=== PATIENT | male | born 1945 | race Caucasian/White ===

== ENCOUNTER 2016-09-11 20:34 | Inpatient (IN) | payer MEDICARE, BC ==
[~2016-09-11] VITALS: Ht 182.9 cm; Wt 146.1 kg
--- NOTE | ~2016-09-11 | HEMODYNAMI ---
PATIENT:ERNESTO CUNNINGHAM MEDICAL RECORD: [id number] : 49 LOCATION:[place] [address] ADMISSION DATE: 09/11/16 Generatedon:09/13/201613:01 Patient name: ERNESTO CUNNINGHAM Patient #: [id number] SSN: : 1945 Date of study: 09/13/2016 Page: Of Hemodynamic Procedure Report Patient Data Patient Demographics Procedure consent was obtained First Name: ERNESTO Gender: Male Last Name: OCTAVIO : 1945 Middle Initial: A Age: 71 year(s) Patient #: [id number] Race: Additional ID: [id number] Contact details [address]: [address] [place] [address] [address] State: [place] City: [place] Zip code: [address] Past Medical History Allergies Allergen Reaction Date Comments Reported Other allergy 12/12/2014 Sulfa Admission Admission Data Admission Date: 09/11/2016 Admission Time: 23:00 Room #: [facility] Procedure Procedure Types Cath Procedure Diagnostic Procedure [facility] w/Coronaries Cardioversion Miscellaneous Procedures Procedure Description Procedure Date Procedure Date: 09/13/2016 Procedure Start Time: 12:34 Procedure End Time: 12:59 Procedure Staff Name Function Hayden Santos MD Performing Physician Lanny Shelley RT Scrub Katerina Garvin RN Nurse Tl Barbosa RN Statistics Tutor Neto Bethea RT Monitor Abimael Park RT Monitor Procedure Data Cath Procedure Fluoroscopy Diagnostic fluoroscopy Total fluoroscopy Time: 8.5 time: 8.5 min min Diagnostic fluoroscopy Total fluoroscopy dose: 892 dose: 892 mGy mGy Contrast Material Contrast Material Type Amount (ml) Isovue 300 138 Entry Location Entry Primary Successful Side Size Upsize Upsize Entry Closure Pereyra ccessful Closure Location (Fr) 1 (Fr) 2 (Fr) Remarks Device Remarks Radial Right 6 Fr Mechanical artery Short Compression Estimated blood loss: 10 ml Diagnostic catheters Device Type Used For End Catheter Placement Terumo 5Fr [place] 110cm Procedure catheter Procedure Medications Medication Administration Route Dosage Heparin Flush Bag added to field 2 bags (1000units/500ml NS) Lidocaine 2% added to field 20 Oxygen NC 4 l/min Refer to Anesthesia Notes for Sedation Medications Radial Cocktail added to field 1 syringe (Verapomil 2mg/Nitro 400mcg/Heparin 1500units) Radial Cocktail I.A. 1 syringe (Verapomil 2mg/Nitro 400mcg/Heparin 1500units) Heparin Bolus I.V. 5000 units Hemodynamics Rest Heart Rate: 103 (bpm) Snapshots Pre Cath Intra NCS Post Cath Vital Signs Time Heart Resp SPO2 etCO2 VS5club Respiration NIBP (mmHg) Rhythm Pain Sedation Rate (ipm) (%) (mmHg) (mmHg) (CO2) (ipm) Status Level (bpm) 12:17:56 108 23 94 45.8 8.2 20 Measuring NSR 0 (1 1) 10(A) , No pain 12:18:10 104 27 94 40.5 9 24 151/91(121) NSR 0 (1 1) 10(A) , No pain 12:22:22 90 32 95 29.2 8.2 11 139/85(104) NSR 0 (1 1) 10(A) , No pain 12:26:34 74 24 95 45 5.2 19 118/70(88) NSR 0 (1 1) 7(A) , No pain 12:30:48 74 30 95 48.7 12.7 18 116/66(92) NSR 0 (1 1) 9(A) , No pain 12:35:41 83 14 94 20.2 3.7 18 141/96(99) NSR 0 (1 1) 9(A) , No pain 12:39:55 81 20 95 18 0 142/81(117) NSR 0 (1 1) 9(A) , No pain 12:44:13 82 19 95 43.5 9.7 23 136/81(111) NSR 0 (1 1) 9(A) , No pain 12:48:27 81 19 95 0 0 134/65(92) NSR 0 (1 1) 9(A) , No pain 12:52:45 79 21 95 46.5 11.2 21 135/73(102) NSR 0 (1 1) 10(A) , No pain 12:57:01 79 25 95 49.5 9.7 15 121/74(99) NSR 0 (1 1) 10(A) , No pain Medications Time Medication Route Dose Verified Delivered Reason Note s Effectiveness by by 12:00:28 Heparin Flush added 2 bags Hayden Blake used for Bag to Danielle Santos MD procedure (1000units/500ml field NS) 12:00:38 Lidocaine 2% added 20ml Hayden Hayden used for to vial Danielle Santos MD procedure field 12:02:27 Oxygen NC 4 l/min Hayden Borges Per physician Danielle Garvin RN 12:16:48 Refer to Hayden Blake Per physician Anesthesia Notes Danielle Medley for Sedation at Medications bedside for TIVA sedation 12:17:14 Radial Cocktail added 1 Haydne Hayden used for (Verapomil to syringe Danielle Santos MD procedure 2mg/Nitro field 400mcg/Heparin 1500units) 12:36:09 Radial Cocktail I.A. 1 Haydenmarianela Paigerey for (Verapomil syringe Danielle Santos MD vasodilation 2mg/Nitro 400mcg/Heparin 1500units) 12:45:10 Heparin Bolus I.V. 5000 Hayden Katerina for dose units Danielle Garvin RN anticoagulation verified wt dr santos Procedure Log Time Note 11:53:04 Tl Barbosa RN sent for patient. Start room use. 11:53:04 Time tracking: Regular hours 11:53:09 Plan of Care:Hemodynamics will remain stable., Cardiac rhythm will remain stable., Comfort level will be maintained., Respiratory function will remain adequate., Patient/ family verbilizes understanding of procedure., Procedure tolerated without complication., Recovers from procedure without complications.. 12:00:28 Heparin Flush Bag (1000units/500ml NS) 2 bags added to field was administered by Hayden Santos MD; used for procedure; 12:00:38 Lidocaine 2% 20ml vial added to field was administered by Hayden Santos MD; used for procedure; 12:02:22 Patient received from CVICU to CCL 1 Alert and oriented. Tansferred to table in Supine position. 12:02:23 Warm blankets applied, and annmarie hugger turned on for patient comfort. 12:02:24 Correct patient and procedure confirmed by team. 12:02:26 Signed procedure consent form obtained from patient. 12:02:27 Oxygen 4 l/min NC was administered by Katerina Garvin RN; Per physician; 12:02:37 ECG and BP/O2 sat monitors applied to patient. 12:02:47 Jasmyne present and monitoring patient for TIVA. 12:16:07 Vital chart was started 12:16:48 Refer to Anesthesia Notes for Sedation Medications was administered by Hayden Santos MD; Per physician; Dr Medley at bedside for TIVA sedation 12:17:14 Radial Cocktail (Verapomil 2mg/Nitro 400mcg/Heparin 1500units) 1 syringe added to field was administered by Hayden Santos MD; used for procedure; 12:22:07 Baseline sample Acquired. 12:22:09 Rhythm: atrial flutter 12:22:21 Full Disclosure recording started 12:22:29 H&P Date Dictated: 09/10/2016 Within 30 days and on chart.. 12:22:30 Pre-procedure instructions explained to patient. 12:22:31 Pre-op teaching completed and patient verbalized understanding. 12:22:32 Family in waiting room. 12:22:33 Patient NPO since Midnight. 12:22:35 Is the patient allergic to Iodine/contrast media? No. 12:22:38 Is patient on blood thinner?Yes 12:22:40 ACC The patient was administered the following blood thiners within the last 24 hours: ACCPlavix 12:22:43 Patient diabetic? No. 12:22:45 Previous problem with sedation/anesthesia? No ? 12:22:46 Snore? Yes 12:22:47 Sleep apnea? Yes 12:22:48 Deviated septum? No 12:22:49 Opens mouth fully? Yes 12:22:49 Sticks out tongue? Yes 12:22:52 Airway obstruction? No ? 12:22:53 Dentures? No ? 12:23:00 Pre procedure: right dorsailis pedis pulse 1+ Palpable, but thready & weak; easily obliterated 12:23:04 Modified Jerson's test Ulnar < 7 seconds 12:23:08 Patient pain scale 0/10 ?. 12:23:17 Lab results completed and on chart. 12:23:21 Right Radial & Right Groin area was prepped with chlora-prep and draped in sterile fashion 12:: Alarms reviewed by R. N. :: Sharps counted by scrub and verified by R.N. :: --------ALL STOP TIME OUT------ 12:: Final Timeout: patient, procedure, and site verified with staff and physician. All members of the team are in agreement. 12:: Right Radial & Right Groin site verified by team. 12::33 Physical assessment completed. ASA score P 2 - A patient with mild systemic disease as per Hayden Santos MD. 12::57 Sedation plan: IV Moderate Sedation Propofol 12:24:00 Procedure started. 12:24:16 Quick combo pads placed on patients chest and back. 12:: Defibrillator synced and charged to 360 Joules. 12:24:31 Shock delivered. 12:24:34 Patient cardioverted to sinus rhythm . 12:27:45 Use device set Radial Dx 12:27:47 Tegaderm 4 x 4 opened to sterile field. 12:27:48 Acist Manifold opened to sterile field. 12:27:48 Acist Hand Control opened to sterile field. 12:27:50 Acist Syringe opened to sterile field. 12:27:51 Medline Cath Pack opened to sterile field. 12:27:51 Bag Decanter opened to sterile field. 12:28:00 MBrace Wrist Support opened to sterile field. 12:28:01 Terumo 6Fr Slender Glidesheath opened to sterile field. 12:28:02 St Messi 260cm J .035 wire opened to sterile field. 12:28:32 Quick Combo opened to sterile field. 12:34:50 Local anesthetic to right radial artery with Lidocaine 2% by Hayden Santos MD.INITIAL ACCESS ONLY 12:35:01 A 6 Fr Short sheath was inserted into the Right Radial artery 12:35:47 Zero performed for pressure channel P1 12:36:09 Radial Cocktail (Verapomil 2mg/Nitro 400mcg/Heparin 1500units) 1 syringe I.A. was administered by Hayden Santos MD; for vasodilation; 12:36:27 A Terumo 5Fr [place] 110cm catheter was advanced over the wire and used for Procedure. 12:36:43 LV gram done using LANDIN 12:36:47 Injector settings: Ml/sec: 5, Volume: 15, 12:36:58 EF : 40 % 12:38:05 Catheter exchanged over wire. 12:39:06 Catheter removed. unable to cannulate vessel. 12:39:37 Medtronic Launcher 6Fr EBU 3.5 guide catheter opened to sterile field. 12:39:45 6 Fr EBU 3.5 guide catheter was inserted over the wire 12:40:02 Medtronic Launcher 6Fr AR 2.0 guide catheter opened to sterile field. 12:40:03 Medtronic Launcher 6Fr EBU 4.0 guide catheter opened to sterile field. 12:40:08 Catheter removed. unable to cannulate vessel. 12:40:14 6 Fr ebu4 guide catheter was inserted over the wire 12:41:13 LCA angiography performed. 12:41:53 Catheter exchanged over wire. 12:41:59 6 Fr AR 2 guide catheter was inserted over the wire 12:43:18 RCA angiography performed. 12:43:43 Pogoapp BasixCompak Inflation Kit opened to sterile field. 12:43:43 Ruggiero Whisper J 300cm 0.014 guide wire opened to sterile field. 12:45:10 Heparin Bolus 5000 units I.V. was administered by Katerina Garvin RN; for anticoagulation; dose verified wtih dr santos 12:47:37 Medtronic Launcher 6Fr HS II guide catheter opened to sterile field. 12:47:48 Wire removed. 12:49:06 Guide Catheter removed. unable to cannulate vessel. 12:49:09 6 Fr HSII guide catheter was inserted over the wire 12:49:18 Guide Catheter removed. unable to cannulate vessel. 12:52:26 Medtronic Launcher 6Fr AL 2.0 guide catheter opened to sterile field. 12:54:12 Catheter removed. unable to cannulate vessel. 12:54:29 Terumo TR Band Large opened to sterile field. 12:55:25 Sheath removed intact; hemostasis achieved with Mechanical Compression to the Right Radial artery. 12:55:43 Procedure ended.(Physican Out) 12:56:04 Fluoroscopy time 08.50 minutes. 12:56:10 Flurop Dose total: 892 12:56:10 Fluoroscopy dose: 892 mGy 12:56:21 Contrast amount:Isovue 300 138ml. 12:56:23 Sharps counted by scrub and verified by R.N. 12:56:41 TR band inflated with 12cc of air. 12:56:43 Insertion/operative site no bleeding no hematoma. 12:56:52 Post right radial artery:stable 12:57:50 Diagnostic Cath Status : Elective 12:58:25 Post Procedure Pulses reassessed and unchanged 12:58:47 Post-procedure physical assessment completed. ASA score P 2 - A patient with mild systemic disease as per Hayden Santos MD. 12:59:00 Post procedure rhythm: sinus rhythm 12:59:05 Estimated blood loss: 10 ml 12:59:07 Post procedure instruction explained to patient.Patient verbalizes understanding. 12:59:14 Patient needs reinforcement of post procedure teaching. 12:59:16 Procedure and supply charges have been captured, reviewed, submitted and are correct. 12:59:18 Vital chart was stopped 12:59:21 See physician's report for complete and final results. 12:59:27 Report given to PCU. 12:59:48 Patient transfered to PCU with Bed. 12:59:51 Procedure ended. 12:59:51 Full Disclosure recording stopped 12:59:55 End room use (Document Last) Device Usage Item Name Manufacture Quantity Catalog Hospital Part Current Minima l Lot# / Number Charge Number Stock Stock Serial# Code Tegaderm 4 3M 1 [id number] [id number] 153888 5 x 4 Acist Acist 1 58188 988933 872652 399449 5 Manifold Medical Systems Inc Acist Hand Acist 1 28624 402680 884296 461884 5 Control Medical Systems Inc Acist Acist 1 19417 511939 750333 732960 20 Syringe Medical Systems Inc Medline Cardinal 1 [id number] 363441 76644 769788 5 Cath Pack Health Bag Microtek 1 2001S 581819 22687 698168 5 DecSpriggle Kids Inc. MBrace Advanced 1 140-0250-00 531670 26251 572044 5 Wrist Vascular Support Dynamics Terumo 6Fr Terumo 1 [id number] 224116 965921 942510 [address] St Messi 1 033773 444149 339529 410126 30 260cm J .035 wire Quick Combo Olery Systems 1 [id number] 013293 895416 608812 5 Terumo 5Fr Terumo 1 405010 784265 088794 316737 5 [place] 110cm catheter Medtronic Medtronic 1 [id number] 996028 60261 932009 3 Launcher 6Fr EBU 3.5 guide catheter Medtronic Medtronic 1 [id number] 501025 49032 285076 1 Launcher 6Fr AR 2.0 guide catheter Medtronic Medtronic 1 [id number] 473083 31509 170654 1 Launcher 6Fr EBU 4.0 guide catheter Merit Merit 1 [id number] 361919 337896 736523 15 BasixComdck Medical Inflation Kit Ruggiero Ruggiero 1 [id number] 527846 590074 205379 5 Whisper J Vascular 300cm 0.014 guide wire Medtronic Medtronic 1 [id number] 647800 70668 997303 1 Launcher 6Fr HS II guide catheter Medtronic Medtronic 1 [id number] 093003 19532 430559 1 Launcher 6Fr AL 2.0 guide catheter Terumo TR Terumo 1 [id number] 824179 599106 917395 40 Band Large Signature Audit Dickerson Stage Time Signature Unsigned Intra-Procedure 09/13/2016 Abimael Park 1:01:23 PM RT(R) (CV) Signatures Monitor : Neto Bethea RT Signature : Date : Time : Monitor : Abimael Park RT Signature : Date : Time : [place] [id number] [place] [address]
--- NOTE | ~2016-09-11 | HEMODYNAMI ---
PATIENT:ERNESTO CUNNINGHAM MEDICAL RECORD: [id number] : 49 LOCATION:[place] [address] ADMISSION DATE: 09/11/16 Generatedon:09/14/201612:22 Patient name: ERNESTO CUNNINGHAM Patient #: [id number] SSN: : 1945 Date of study: 09/14/2016 Page: Of Hemodynamic Procedure Report Patient Data Patient Demographics Procedure consent was obtained First Name: ERNESTO Gender: Male Last Name: OCTAVIO : 1945 Middle Initial: A Age: 71 year(s) Patient #: [id number] Race: Additional ID: [id number] Contact details [address]: [address] [place] [address] [address] State: [place] City: [place] Zip code: [address] Past Medical History Allergies Allergen Reaction Date Comments Reported Other allergy 12/12/2014 Sulfa Admission Admission Data Admission Date: 09/11/2016 Admission Time: 23:00 Room #: [facility] Procedure Procedure Types Cath Procedure Miscellaneous Procedures Moderate Sedation up to 30 minutes Peripheral Cath Diagnostic Procedure Cath Peripheral Four Vessel Arteriogram Procedure Description Procedure Date Procedure Date: 09/14/2016 Procedure Start Time: 11:28 Procedure End Time: 12:22 Procedure Staff Name Function Hayden Santos MD Performing Physician Carri Haney RN Nurse Zac Shkula RT Monitor Alberto Salmeron RT Scrub Procedure Data Cath Procedure Fluoroscopy Diagnostic fluoroscopy Total fluoroscopy Time: time: 17.6 min 17.6 min Diagnostic fluoroscopy Total fluoroscopy dose: dose: 1377.46 mGy 1377.46 mGy Contrast Material Contrast Material Type Amount (ml) Isovue 300 346 Entry Location Entry Primary Successful Side Size Upsize Upsize Entry Closure Succes sful Closure Location (Fr) 1 (Fr) 2 (Fr) Remarks Device Remarks Femoral Right 6 Fr Exoseal artery Short Estimated blood loss: 10 ml Diagnostic catheters Device Type Used For End Catheter Placement Diagnostic Infinity 5Fr Procedure 3DRC catheter Procedure Complications No complications Procedure Medications Medication Administration Route Dosage Heparin Flush Bag added to field 2 bags (1000units/500ml NS) Lidocaine 2% added to field 20 Hemodynamics Rest Heart Rate: 65 (bpm) Snapshots Pre Cath Intra NCS Post Cath Vital Signs Time Heart Resp SPO2 NIBP (mmHg) Rhythm Pain Sedation Rate (ipm) (%) Status Level (bpm) 11:14:53 78 22 95 157/89(103) NSR 0 (11) 10(A) , No pain 11:21:08 71 18 92 151/133(149) NSR 0 (11) 10(A) , No pain 11:25:30 82 18 94 168/85(120) NSR 0 (11) 10(A) , No pain 11:29:40 82 22 84 128/73(90) NSR 0 (11) 8(A) , No pain 11:33:46 72 23 87 94/52(68) NSR 0 (11) 8(A) , No pain 11:37:43 82 25 88 114/77(93) NSR 0 (11) 8(A) , No pain 11:42:42 80 22 89 146/70(92) NSR 0 (11) 8(A) , No pain 11:46:54 89 24 91 126/72(87) NSR 0 (11) 8(A) , No pain 11:51:06 86 22 90 99/55(78) NSR 0 (11) 8(A) , No pain 11:55:16 62 24 87 67/36(59) NSR 0 (11) 8(A) , No pain 11:58:04 54 16 84 74/52(65) NSR 0 (11) 8(A) , No pain 12:02:02 68 17 88 79/59(73) NSR 0 (11) 8(A) , No pain 12:05:53 72 18 89 95/80(91) NSR 0 (11) 8(A) , No pain 12:10:38 75 19 100 162/90(124) NSR 0 (11) 9(A) , No pain 12:14:52 77 24 98 152/85(105) NSR 0 (11) 9(A) , No pain 12:19:06 78 28 130/76(84) NSR 0 (11) 9(A) , No pain Medications Time Medication Route Dose Verified Delivered Reason Notes Effec tiveness by by 10:40:13 Heparin Flush added 2 Carri Carri used for Bag to bags Haney Haney procedure (1000units/500ml field RN RN NS) 10:40:20 Lidocaine 2% added 20ml Carri Carri used for to vial Haney Haney procedure field RN visual display manager Log Time Note 10:36:23 Zac Shukla RT(R) sent for patient. Start room use. 10:36:24 Time tracking: Regular hours 10:36:27 Plan of Care:Hemodynamics will remain stable., Cardiac rhythm will remain stable., Comfort level will be maintained., Respiratory function will remain adequate., Patient/ family verbilizes understanding of procedure., Procedure tolerated without complication., Recovers from procedure without complications.. 10:40:13 Heparin Flush Bag (1000units/500ml NS) 2 bags added to field was administered by Carri Haney RN; used for procedure; 10:40:20 Lidocaine 2% 20ml vial added to field was administered by Carri Haney RN; used for procedure; 11:04:12 Patient received from CVICU to CCL 3 Alert and oriented. Tansferred to table in Supine position. 11:04:13 Warm blankets applied, and annmarie hugger turned on for patient comfort. 11:04:14 Correct patient and procedure confirmed by team. 11:04:15 Signed procedure consent form obtained from patient. 11:04:15 ECG and BP/O2 sat monitors applied to patient. 11:13:38 Vital chart was started 11:14:01 Baseline sample Acquired. 11:14:05 Rhythm: sinus rhythm 11:14:07 Full Disclosure recording started 11:14:15 H&P Date Dictated: 09/13/2016 Within 30 days and on chart.. 11:14:15 Pre-procedure instructions explained to patient. 11:14:15 Pre-op teaching completed and patient verbalized understanding. 11:14:16 Family in waiting room. 11:14:18 Patient NPO since Midnight. 11:14:19 Is the patient allergic to Iodine/contrast media? No. 11:14:20 Is patient on blood thinner?Yes 11:14:24 ACC The patient was administered the following blood thiners within the last 24 hours: ACCPlavix 11:16:21 Patient diabetic? Unknown. 11:16:24 Previous problem with sedation/anesthesia? No ? 11:16:32 Snore? Yes 11:16:33 Sleep apnea? No 11:16:34 Deviated septum? No 11:16:35 Opens mouth fully? Yes 11:16:35 Sticks out tongue? Yes 11:16:38 Airway obstruction? No ? 11:16:40 Dentures? No ? 11:16:42 Pre procedure: right dorsailis pedis pulse 1+ Palpable, but thready & weak; easily obliterated 11:16:44 Patient pain scale 0/10 ?. 11:16:52 IV patent on arrival in left forearm with 0.9% NaCl at [facility]. 11:16:57 Lab results completed and on chart. 11:17:05 Right groin area was prepped with chlora-prep and draped in sterile fashion 11:17:06 Alarms reviewed by R. N. 11:17:06 Sharps counted by scrub and verified by R.N. 11:17:07 --------ALL STOP TIME OUT------ 11:17:07 Final Timeout: patient, procedure, and site verified with staff and physician. All members of the team are in agreement. 11:17:10 Right groin site verified by team. 11:17:12 Physical assessment completed. ASA score P 3 - A patient with severe systemic disease as per Hayden Santos MD. 11:17:15 Sedation plan: IV Moderate Sedation Versed, Fentanyl 11:26:59 Use device set Femoral PCI 11:27:00 Tegaderm 4 x 4 opened to sterile field. 11:27:01 Acist Manifold opened to sterile field. 11:27:02 Acist Syringe opened to sterile field. 11:27:03 Acist Hand Control opened to sterile field. 11:27:03 Bag Decanter opened to sterile field. 11:27:03 Medline Cath Pack opened to sterile field. 11:27:04 Terumo 6Fr Venus Sheath opened to sterile field. 11:27:04 St Messi 260cm J .035 wire opened to sterile field. 11:27:04 Merit BasixCompak Inflation Kit opened to sterile field. 11:27:45 Ruggiero Whisper J 300cm 0.014 guide wire opened to sterile field. 11:27:45 CityVot[employer]ronic Launcher 6Fr AR 2.0 guide catheter opened to sterile field. 11:27:59 Procedure started. 11:28:00 Zero performed for pressure channel P1 11::03 Zero performed for pressure channel P1 11::05 Zero performed for pressure channel P1 11::08 Zero performed for pressure channel P1 11:28:55 Local anesthetic to right femoral artery with Lidocaine 2% by Hayden Santos MD.INITIAL ACCESS ONLY 11:29:15 A 6 Fr Short sheath was inserted into the Right Femoral artery 11::22 A Diagnostic Infinity 5Fr 3DRC catheter was advanced over the wire and used for Procedure. 11:30:13 Right subclavian angiography performed 11::15 Left carotid angiography performed. 11:30:16 Left subclavian angiography performed 11::56 Procedure type changed to Cath procedure, Miscellaneous Procedures, Moderate Sedation up to 30 minutes, Peripheral Cath Diagnostic Procedure, Cath Peripheral, Four Vessel Arteriogram 11:31:07 Catheter removed. 11:31:14 ACC PCI Site: pRCA has 90% stenosis. 11:31:23 ACC Pre-intervention JENNIFER Flow is 3. 11:31:30 6 Fr AR 2 guide catheter was inserted over the wire 11:32:59 Guide Catheter removed. unable to cannulate vessel. 11:33:07 Medtronic Launcher 6Fr 3DRC guide catheter opened to sterile field. 11:33:35 6 Fr 3DRC guide catheter was inserted over the wire 11:34:02 Whisper wire advanced. 11:36:43 IV Extension Set opened to sterile field. 11:37:33 Wire removed. unable to cross lesion. 11:37:37 Guide Catheter removed. unable to cannulate vessel. 11:38:11 Medtronic Launcher 6Fr 3DRIGHT guide catheter opened to sterile field. 11:38:21 6 Fr 3DRIGHT guide catheter was inserted over the wire 11:39:30 Whisper wire advanced. 11:43:24 Medtronic Launcher 6Fr ALR1-2 guide catheter opened to sterile field. 11:43:30 [place] Sci Choice PT Extra Support J 300cm .014 gu opened to sterile field. 11:43:31 Wire removed. 11:43:38 Guide Catheter removed. unable to cannulate vessel. 11:43:45 6 Fr ALR 1-2 guide catheter was inserted over the wire 11:44:03 Guide Catheter removed. unable to cannulate vessel. 11:44:54 Medtronic Launcher 6Fr JR 4.0 guide catheter opened to sterile field. 11:45:06 6 Fr JR 4 guide catheter was inserted over the wire 11:45:56 Guide Catheter removed. unable to cannulate vessel. 11:46:11 [place] mGenerator Runway 6Fr ART 3.5 guide catheter opened to sterile field. 11:46:39 6 Fr ART 3.5 guide catheter was inserted over the wire 11:48:04 Guide Catheter removed. unable to cannulate vessel. 11:48:35 Medtronic Launcher 6Fr AL 1.0 guide catheter opened to sterile field. 11:48:41 6 Fr AL 1 guide catheter was inserted over the wire 11:49:55 Guide Catheter removed. unable to cannulate vessel. 11:50:02 Medtronic Launcher 6Fr RCB guide catheter opened to sterile field. 11:50:03 6 Fr RCB guide catheter was inserted over the wire 11:50:43 Guide Catheter removed. unable to cannulate vessel. 11:50:51 6 Fr 3DRIGHT guide catheter was inserted over the wire 11:53:13 Choice PT XS wire advanced. 11:55:40 Wire removed. 11:55:53 Guide Catheter removed. unable to cannulate vessel. 11:57:41 Unable to get a guide to cannulate vessel and unable to advance wire across lesion. 11:57:54 Cordis 6Fr Exoseal opened to sterile field. 11:58:09 Sheath removed intact; hemostasis achieved with Exoseal to the Right Femoral artery. 11:58:11 Procedure ended.(Physican Out) 12:02:29 Fluoroscopy time 17.60 minutes. 12:02:56 Fluoroscopy dose: 1377.46 mGy 12:02:56 Flurop Dose total: 1377.46 12:03:00 Contrast amount:Isovue 300 346ml. 12:03:02 Sharps counted by scrub and verified by R.N. 12:03:16 St Messi Femstop Arch Gold opened to sterile field. 12:03:27 Post-op/insertion site Right Femoral artery dressed using a 4 x 4 and Tegaderm. 12:03:51 Post right femoral artery:stable, oozing 12:03:58 Femstop placed over the right femoral artery at 140 mmHg. Hemostasis achieved. 12:04:00 Post Procedure Pulses reassessed and unchanged 12:06:08 Post procedure rhythm: unchanged. 12:06:26 Post-procedure physical assessment completed. ASA score P 3 - A patient with severe systemic disease as per Hayden Santos MD. 12:06:36 Estimated blood loss: 10 ml 12:06:37 Post procedure instruction explained to patient.Patient verbalizes understanding. 12:06:37 Patient needs reinforcement of post procedure teaching. 12:07:30 Procedure Complication : No complications 12:08:20 Procedure and supply charges have been captured, reviewed, submitted and are correct. 12:22:05 Vital chart was stopped 12:22:05 See physician's report for complete and final results. 12:22:07 Report given to CVICU. 12:22:12 Patient transfered to CVICU with Bed. 12:22:14 Procedure ended. 12:22:14 Full Disclosure recording stopped 12:22:19 End room use (Document Last) Device Usage Item Name Manufacture Quantity Catalog Number Hospital Part Current Minim al Lot# / Charge Number Stock Stock Serial# Code Tegaderm 4 1 [id number] [id number] 5 x 4 Acist Acist 1 17028 222296 774224 124507 5 Manifold Medical Systems Inc Acist Acist 1 24773 597179 584454 442114 20 Syringe Medical Systems Inc Acist Hand Acist 1 95390 062834 022468 927700 5 Control Medical Systems Inc Bag Microtek 1 2002S 201919 50268 420808 5 Decanter Medical Inc. Medline Cardinal 1 [id number] 910319 57468 755545 5 Lyks Terumo 6Fr Terumo 1 [id number] 038067 858774 062926 [address] Messi St Messi 1 789750 933595 456804 036282 30 260cm J .035 wire Merit Merit 1 [id number] 926720 681080 606262 15 BasixCompak Medical Inflation Kit Ruggiero Ruggiero 1 [id number] 699559 449138 634065 5 Whisper J Vascular 300cm 0.014 guide wire Medtronic Medtronic 1 [id number] 373668 26465 915483 1 Launcher 6Fr AR 2.0 guide catheter Diagnostic Cardinal 1 [id number] 590179 475784 463060 9 Active Tax [employer] Accounting 5Fr 3DRC catheter Medtronic Medtronic 1 [id number] 787473 880677 479239 1 Launcher 6Fr 3DRC guide catheter IV Hospira 1 85892-58 182547 28068 833546 5 Extension Set Medtronic Medtronic 1 [id number] 937026 127004 497396 1 Launcher 6Fr 3DRIGHT guide catheter Medtronic Medtronic 1 [id number] 000865 26031 250533 1 Launcher 6Fr ALR1-2 guide catheter Winnetoon Sci Winnetoon 1 [id number] 294234 834545 067725 5 Choice PT Scientific Extra Support J 300cm .014 gu Medtronic Medtronic 1 [id number] 086870 90377 587190 1 Launcher 6Fr JR 4.0 guide catheter Winn[place]oon Sci Winn[place]oon 1 [id number] 034459 938033 082801 [address] 6Fr Scientific ART 3.5 guide catheter Medtronic Medtronic 1 [id number] 673216 29721 033214 1 Launcher 6Fr AL 1.0 guide catheter Medtronic Medtronic 1 [id number] 059373 77575 216272 1 Launcher 6Fr RCB guide catheter Cordis 6Fr Cardinal 1 EX600 311435 192085 089321 [address]i St Messi 1 [id number] 560478 633848 346386 5 Femstop Arch Gold Signature Audit [place] Stage Time Signature Unsigned Intra-Procedure 09/14/2016 Zac Shukla 12:22:34 PM RT(R) Signatures Monitor : aZc Shukla RT Signature : Date : Time : [place] [id number] [place], [place] [address]
[~2016-09-11 20:34] MED LIST: ASPIRIN325 MG PO; COZAAR100 MG PO; LIORESAL 10 MG10 MG PO; MOBIC7.5 MG PO; PLAVIX75 MG PO; PRILOSEC20 MG PO; ZYRTEC10 MG PO
[2016-09-11 21:45] LABS: BASOPHILS 0.3 % (0.0-2.0); EOSINOPHILS 0.8 % (0-7); HEMATOCRIT 48.5 % (42.0-54.0); HEMOGLOBIN 15.4 g/dL (13.5-17.5); IMMATURE GRANULOCYTES 0.3 % (0-5); LYMPHOCYTES 18.9 % (15-50); MCH 25.9 pg (26.0-34.0); MCHC 31.8 g/dL (31.0-37.0); MCV 81.5 fL (80.0-100.0); MONOCYTES 13.5 % (2-11); NEUTROPHILS 66.2 % (40-80); PLATELET COUNT 233 10x3/uL (130-400); RBC 5.95 10x6/uL (4.20-6.10); RDW 15.1 % (11.5-14.5); WBC 8.7 10x3/uL (4.8-10.8)
[2016-09-11 21:57] LABS: ALBUMIN 3.6 g/dL (3.4-5.0); ANION GAP 6.3 mmol/L (8-16); BILIRUBIN - TOTAL 0.43 mg/dL (0.2-1.3); CALCIUM 8.4 mg/dL (8.5-10.1); CARBON DIOXIDE 35.1 mmol/L (21.0-32.0); CREATININE - SERUM 1.5 mg/dL (0.6-1.3); POTASSIUM - SERUM 4.4 mmol/L (3.5-5.1); PROTEIN - SERUM 7.3 g/dL (6.4-8.2)
[2016-09-11 22:19] LABS: TROPONIN-I 0.747 ng/mL (0.000-0.060)
[2016-09-11 23:13] LABS: AMYLASE - SERUM 45 U/L (25-115); CREATINE KINASE 268 UL (21-232); LIPASE 175 U/L (73-393); MAGNESIUM - SERUM 1.8 mg/dL (1.8-2.4); PHOSPHOROUS 3.4 mg/dL (2.5-4.9)
[2016-09-11 23:18] LABS: CKMB 8.5 U/L (0.0-3.6)
[2016-09-11 23:40] VITALS: BP 131/74; BMI 47.4
--- NOTE | 2016-09-11 23:40 | NUR ---
Pt arrives to CVICU room 8 and self-transfers to bed after voiding 550cc concentrated, yellow urine. Pt alert, orientedx4 and following all conversation with no neuro deficits noted. Pupils size 3 bilaterally ERRLA. Respirations unlabored. O2 @ 2L NC. Lung sounds diminished to MARIANNE LLL RLL. Pt cough productive with yellow sputum produced. HR atrial flutter controlled with S1S2 auscultated. Radial pulses +2 bilaterally. Pedal pulses weak/palpable. Right hammonds wound dressing with cellulitis noted. Pt SOB with exertion. Pain denied. Morphine ELEMENTARY CLASSROOM TEACHER setup 1mg Q10min with no lockout per order. NS infusing @ 75cc/hr per order. Call light and explained and placed within pt reach onto bedside table with urinal.
[2016-09-12] VITALS (23 sets, daily range): BP systolic 102–164; BP diastolic 56–93; Ht 182.9 cm; Wt 146.1 kg
--- NOTE | 2016-09-12 01:40 | NUR ---
Pt resting quietly with VSS. NO s/s pain or distress. Call light and bedside table remain within reach. CPOC.
--- NOTE | 2016-09-12 03:40 | NUR ---
Reassessment complete. See flowsheet. Pt awakens to verbal stimulation for AM EKG. No neuro changes to note. Pt lethargic but appropriate. O2 @ 3L NC. Lung sounds remain diminised to MARIANNE LLL RLL. Pt cough strong and nonproductive currently. HR remains controlled atrial flutter. BS +. Right A/C PIV site CDI no s/s infection or infiltration with NS @ 75cc/hr. Pt denies further needs at this time and quickly back to sleep. Call light and bedside table remain within pt reach. CPOC.
--- NOTE | 2016-09-12 05:40 | NUR ---
Pt resting with VSS. NO s/s pain or distress. Call light and bedside table remain within pt reach. CPOC.
[2016-09-12 06:38] LABS: CKMB 7.5 U/L (0.0-3.6); CREATINE KINASE 234 UL (21-232)
[2016-09-12 06:43] LABS: TROPONIN-I 0.603 ng/mL (0.000-0.060)
--- NOTE | 2016-09-12 07:15 | NUR ---
REPORT RECEIVED FROM BUTTON SEWING MACHINE OPERATOR NURSE. PT RESTING IN BED QUIETLY. DENIES NEEDS AT THIS TIME. ASSESSMENT COMPLETE PER FLOWSHEET. CALL LIGHT IN REACH. BED IN LOW POSITION. WILL CONTINUE TO ASSESS FOR CHANGES THROUGHTOUT SHIFT.
--- NOTE | 2016-09-12 09:00 | NUR ---
FAMILY AT BEDSIDE. UPDATE PROVIDED.
--- NOTE | 2016-09-12 10:00 | NUR ---
PT IN DEEP SLEEP. PHYSICAL STIMULATION PROVIDED TO WAKE PT. PT NOT WAKING UP EASILY. CONTINUED TO CALL PT'S NAME AND SHAKE SHOULDERS. PT OPENS EYES AND IS NOT RESPONDING APPROPRIATLY. REACHING FOR THE AIR IF HE WERE TRYING TO REACH OR GRAB SOMETHING. SPEACH SLURRED. PERRLA. OVER THE ROAD DRIVER WEAK IN UPPER EXT. PT ASKED TO RAISE LEGS AND HE WOULD NOT DO SO. ASKED TO WIGGLE HIS TOES AND HE RESPONDED APPROPRATLY. CHARGE NURSE, ERICH CONTACTED IN REGARDS WITH CONCERNS WITH PT.
--- NOTE | 2016-09-12 10:15 | NUR ---
CHARGE NURSE AT BEDSIDE. AGREED TO TAKE PT FOR CT SCAN OF THE HEAD AND TO ER FOR AR SAVES.
--- NOTE | 2016-09-12 11:20 | NUR ---
RECIEVED PT FROM ER. DID NOT MEET AR SAVES CRITERIA. REFER TO ER RECORDS.
--- NOTE | 2016-09-12 11:30 | NUR ---
ABG'S DRAWN. WILL PLACE PT ON BIPAP MASK.
[2016-09-12 11:42] LABS: BASOPHILS 0.4 % (0.0-2.0); EOSINOPHILS 0.7 % (0-7); HEMATOCRIT 47.9 % (42.0-54.0); HEMOGLOBIN 14.6 g/dL (13.5-17.5); IMMATURE GRANULOCYTES 1.1 % (0-5); LYMPHOCYTES 20.9 % (15-50); MCH 25.9 pg (26.0-34.0); MCHC 30.5 g/dL (31.0-37.0); MCV 85.1 fL (80.0-100.0); MEAN PLATELET VOLUME 10.6 fL (7.4-10.4); MONOCYTES 12.5 % (2-11); NEUTROPHILS 64.4 % (40-80); PLATELET COUNT 197 10x3/uL (130-400); RBC 5.63 10x6/uL (4.20-6.10); RDW 15.4 % (11.5-14.5); WBC 5.4 10x3/uL (4.8-10.8)
[2016-09-12 11:50] LABS: APTT 36.1 SECONDS (22.8-39.4); INR 1.12 (0.85-1.17); PROTIME 14.3 SECONDS (11.6-15.0)
--- NOTE | 2016-09-12 12:00 | NUR ---
FAMILY AT BEDSIDE. UPDATE PROVIDED.
[2016-09-12 12:13] LABS: ALBUMIN 3.2 g/dL (3.4-5.0); ALKALINE PHOSPHATASE 89 U/L (46-116); ALT (SGPT) 79 U/L (10-68); CALC OSMOLALITY 278 mosm/kg (275-300); CARBON DIOXIDE 37.1 mmol/L (21.0-32.0); CHLORIDE - SERUM 99 mmol/L (98-107); CKMB 6.1 U/L (0.0-3.6); CREATINE KINASE 169 UL (21-232); CREATININE - SERUM 1.4 mg/dL (0.6-1.3); GLUCOSE 102 mg/dL (74-106); POTASSIUM - SERUM 4.5 mmol/L (3.5-5.1); PROTEIN - SERUM 6.7 g/dL (6.4-8.2); SODIUM 136 mmol/L (136-145); UREA NITROGEN 31 mg/dL (7-18); eGFR NON AFRICAN AMERICAN 53 mL/min (90-120)
[2016-09-12 12:16] LABS: TROPONIN-I 0.582 ng/mL (0.000-0.060)
[2016-09-12 14:07] LABS: APPEARANCE CLEAR (CLEAR); BILIRUBIN NEGATIVE (NEGATIVE); COLOR YELLOW (YELLOW); GLUCOSE NEGATIVE (NEGATIVE); KETONE NEGATIVE (NEGATIVE); LEUKOCYTE ESTERASE NEGATIVE (NEGATIVE); NITRITE NEGATIVE (NEGATIVE); PROTEIN 1+ mg/dL (NEGATIVE); SPECIFIC GRAVITY 1.015 (1.005-1.020); UROBILINOGEN NORMAL (NORMAL)
[2016-09-12 14:09] LABS: BACTERIA FEW /hpf (NONE SEEN); EPITHELIAL CELLS OCC /hpf (0-5); HYALINE CAST 0-5 /lpf (NONE SEEN); MUCUS <1+ /lpf (NONE SEEN); RED CELLS - URINE RARE /hpf (0-5); WHITE CELLS - URINE OCC /hpf (0-5)
--- NOTE | 2016-09-12 14:45 | NUR ---
ABG'S REDRAWN. IMPROVING WITH BIPAP. WILL CONTINUE TO ASSESS FOR CHANGES.
[2016-09-12] MEDS ORDERED: AMOXICILLIN500 M1 PO (16:25)
[2016-09-12] MEDS ORDERED: BENZONATATE200 MG PO (16:25)
[2016-09-12] MEDS ORDERED: BETAPACE 80 MG80 MG PO (16:25)
[2016-09-12] MEDS ORDERED: IPRATROPIUM BR21 MCG NASAL (16:26)
[2016-09-12] MEDS ORDERED: METOPROLOL TART50 MG PO (16:26)
[2016-09-12] MEDS ORDERED: FUROSEMIDE20 MG PO (16:26)
[2016-09-12] MEDS ORDERED: FLUTICASONE PRO16 GM NASAL (16:27)
[2016-09-12] MEDS ORDERED: OMEPRAZOLE20 M1 PO (16:27)
[2016-09-12] MEDS ORDERED: CLEOCIN HCL300 MG PO (16:29)
[2016-09-12] MEDS ORDERED: VIBRAMYCIN 100100 MG PO (16:30)
[2016-09-12] MEDS ORDERED: XARELTO10 MG PO (16:31)
--- NOTE | 2016-09-12 17:30 | NUR ---
BIPAP MASK TAKEN OFF FOR HYDRATION. NOTICIBLE CHANGES IN MENTAL STATUS. AA0. FOLLOWING COMMANDS AND ANSWERING APPROPRIATLY.
[2016-09-12 17:52] LABS: CKMB 4.7 U/L (0.0-3.6); CREATINE KINASE 136 UL (21-232)
--- NOTE | 2016-09-12 18:00 | NUR ---
BIPAP MASK TAKEN OFF AND PLACED ON 4L NC WHILE IS IN ROOM FOR VISITATION. WILL PUT BIPAP MASK BACK ON.
[2016-09-12 18:01] LABS: TROPONIN-I 0.507 ng/mL (0.000-0.060)
--- NOTE | 2016-09-12 19:30 | NUR ---
REPORT RECEIVED AND CARE ASSUMED. INITIAL SHIFT ASSESSMENT COMPLETED. SEE FLOWSHEET. PT CURRENTLY ON 4L N/C TOLERATING WELL. DID HAVE EVENING MEAL. WILL BE NPO AFTER MIDNIGHT FOR PROCEDURE. PT TEACHING DONE. PT VERBALIZES COMPREHENSION ABOUT PENDING PROCEDURES. PT BEING MONITORED PER STANDARD ICU PROTOCOL WILL ALL ALARMS VERIFIED AND SET. BED IN LOW POSITION AND CALL LIGHT IN REACH. PT PLACED ON BIPAP AT 40% PER ORDER
--- NOTE | 2016-09-12 20:26 | NUR ---
SPOKE WIWTH DR. ALEXANDER TO CLARIFY LASIX AND IV ORDERS. NEW ORDERS RECEIVED AND REPEATED TO VERIFY
--- NOTE | 2016-09-12 21:00 | NUR ---
FAMILY AT BEDSIDE. HS MEDS GIVEN AND PT TEACHING DONE PRIOR TO ADMINISTRATION. PT VERBALIZES GOOD UNDERSTANDING OF MEDS. TAKEN. QUESTIONS ANSWERED OF . PT PLACED BACK ON 4L N/C PER REQUEST SO HE COULD VISIT WITH FAMILY
--- NOTE | 2016-09-12 22:00 | NUR ---
FAMILY GONE NOW. PT PLACED BACK ON BIPAP.
--- NOTE | 2016-09-12 23:00 | NUR ---
SHIFT REASSESSMENT COMPLETEDNJO SIGNIFCANT CHANGE
[2016-09-13] VITALS (22 sets, daily range): BP systolic 101–143; BP diastolic 43–81
--- NOTE | 2016-09-13 01:00 | NUR ---
PT RESTING CONTINUES ON 40% BIPAP. EYES CLOSED RESP REG AND NONLABORED. VSS
--- NOTE | 2016-09-13 03:00 | NUR ---
SHIFT REASSESSMENT COMPLETED NO SIGNIFICANT CHANGES. RT AT BEDSIDE FOR AM ABG'S
--- NOTE | 2016-09-13 05:00 | NUR ---
COMPLETE BED BATH GIVEN AND LINENS CHANGED. CHLORHEXIDINE BATH DONE. NOTE REDNESS UNDER LEFT BREAST AND LATERAL SKIN FOLD EXTENDING FROM BREAST. AREA GENTLY CLEANED. NO POWDER USED DUE TO ANTICIPATED PROCEDURE. PT TOLERATED WELL
[2016-09-13 06:20] LABS: BASOPHILS 0.4 % (0.0-2.0); EOSINOPHILS 1.5 % (0-7); HEMATOCRIT 44.7 % (42.0-54.0); HEMOGLOBIN 13.6 g/dL (13.5-17.5); IMMATURE GRANULOCYTES 0.4 % (0-5); LYMPHOCYTES 22.2 % (15-50); MCH 25.5 pg (26.0-34.0); MCHC 30.4 g/dL (31.0-37.0); MCV 83.7 fL (80.0-100.0); MEAN PLATELET VOLUME 10.8 fL (7.4-10.4); MONOCYTES 12.8 % (2-11); NEUTROPHILS 62.7 % (40-80); PLATELET COUNT 194 10x3/uL (130-400); RBC 5.34 10x6/uL (4.20-6.10); RDW 15.2 % (11.5-14.5); WBC 4.7 10x3/uL (4.8-10.8)
[2016-09-13 06:34] LABS: ANION GAP 3.2 mmol/L (8-16); CARBON DIOXIDE 37.8 mmol/L (21.0-32.0); CREATININE - SERUM 1.3 mg/dL (0.6-1.3)
--- NOTE | 2016-09-13 07:00 | NUR ---
Received report from MARY Clifford and assumed care of patient. Pt currently asleep with BIPAP on. Currently Atrial flutter rate of 110 on CM. BP stable. See shift assessment flowsheet for all findings.
--- NOTE | 2016-09-13 08:40 | NUR ---
Patients family in room to see patient. Patient asleep with BIPAP at this time. Called CHARLI in photofinishing laboratory worker regarding when patient is on schedule for photofinishing laboratory worker today, pt should be taken this afternoon. Informed family of this and discussed current PCO. Questions and concerns addressed. They will return after lunch.
--- NOTE | 2016-09-13 09:28 | NUR ---
Patient awake, BIPAP removed for a break, placed on 4L NC. POC discussed, AM meds given per MAR with small sip of water. Patient denies any addtional needs.
--- NOTE | 2016-09-13 10:04 | NUR ---
Patient requesting that he be placed back on BIPAP, saids he feels more comfortable with it on.
--- NOTE | 2016-09-13 10:37 | NUR ---
laborer cement gun placing called and is requesting pt to be pre-op'd . Requested pre op orders.
--- NOTE | 2016-09-13 10:38 | NUR ---
Called patients and informed her that they will be taking patient to analytical lab technician here in a bit.
--- NOTE | 2016-09-13 10:53 | NUR ---
Patient taken back off BIPAP and placed on NC, family here to see patient before procedure
--- NOTE | 2016-09-13 12:04 | NUR ---
Patient taken to logging rafter laborer, family showed to waiting room.
--- NOTE | 2016-09-13 13:24 | NUR ---
Patient back from lab support technician. Currently sinus rhythm on heel slugger rate of 82. Patient states he feels better and can tell his heart is beating normal. closure device to right wrist. Small sip of water provided, pt tolerated well. Will continue to monitor closely.
--- NOTE | 2016-09-13 13:35 | NUR ---
Patient placed on BIPAP per his request.
--- NOTE | 2016-09-13 14:30 | NUR ---
Patients HR dropped into the 40s. called and informed of this. No new orders at this time.
--- NOTE | 2016-09-13 15:02 | NUR ---
Patient Name: ERNESTO CUNNINGHAM Admission Status: ER Accout number: [id number] Admission Date: 09-11-2016 : 1945 Admission Diagnosis:CHEST PAIN, UNSPECIFIED Attending: BRYCE Current LOS: 2 Anticipated DC Date: 09-16-2016 Planned Disposition: Home Primary Insurance: MEDICARE A & B Is the patient Alert and Oriented? Yes * How many steps to enter\exit or inside your home? FOUR * PCP DR LATHAM * Pharmacy [facility] [address] [facility] * Preadmission Environment Home with Family * ADLs Independent * Other Equipment SKIDS IN SHOWER * List name and contact numbers for known caregivers / representatives who currently or will assist patient after discharge: KIRILL CUNNINGHAM, SPOUSE, * Community resources currently utilized None * Additional services required to return to the preadmission environment? No * Can the patient safely return to the preadmission environment? Yes * Has this patient been hospitalized within the prior 30 days at any hospital? No Discharge Planning Comments: CM MET WITH PATIENT TO ASSESS DC PLAN/NEEDS. HE STATED HE LIVES AT HOME WITH HIS AND IS INDEPENDENT IN HIS CARE/ADL'S. HE STATED HIS WILL DRIVE HIM HOME AT [place]. HE STATED HE HAS USED HH SERVICES IN THE PAST, BUT CANNOT REMEMBER NAME OF HH AGENCY. STATED HE DOES NOT FEEL HE WILL NEED HH SERVICES OR ANY REHAB SERVICES AT [place]. HE STATED HE HAS NO MEDICAL EQUIPMENT AND INQUIRED ABOUT HOME CPAP. THERE ARE NO MD ORDERS FOR HOME CPAP, SO CM ENCOURAGED PT TO SPEAK TO DR LATHAM ABOUT CPAP WHEN HE ROUNDS AGAIN, AND INFORMED HIM THAT HOME CPAP REQUIRES SLEEP STUDY. HE STATED HIS HOME IS A SAFE PLACE AND PLANS TO RETURN HOME AT [place]. CM WILL FOLLOW AND ASSIST NEEDED WITH ANY DC NEEDS THEY ARISE. Rehabilitation Specialist: Casi Nagy RN, CM
--- NOTE | 2016-09-13 15:40 | NUR ---
Patients HR dropped down into 40s again. will inform tauth on rounds.
--- NOTE | 2016-09-13 16:13 | NUR ---
through to see patient. Spoke with family and discussed plan of care.
--- NOTE | 2016-09-13 17:28 | NUR ---
Right radial closure device removed, dressing applied. Patient set up with dinner tray. Informed him he is NPO pc midnight.
--- NOTE | 2016-09-13 19:09 | NUR ---
in to see patient.
--- NOTE | 2016-09-13 19:15 | NUR ---
THE SHIFT ASSESSMENT DATED FOR 09/12/18 AT 1915 FOR DOCUMENTATION FOR 09/13/16 THE SHIFT ASSESSMENT DATED FOR 09/12/18 AT 1930 FOR CORRECTLY DATED AND TIMED.
--- NOTE | 2016-09-13 19:15 | NUR ---
REPORT RECEIVED AND CARE ASSUMED. INITIAL SHIFT ASSESSMENT PER FLOWSHEET. PT CONTINUES TO BE MONITORED PER STANDARD ICU PROTOCOL WITH ALL ALARMS SET.
--- NOTE | 2016-09-13 19:30 | NUR ---
DR. LATHAM ON UNIT VERIFIED THAT RESPIRATORY CONSULT IS TO BE DONE TOMORROW
--- NOTE | 2016-09-13 21:00 | NUR ---
NO VISITORS AT THIS TIME. PT TAKEN OFF 4L N/C PLACED ON BIPAP AT 40%
--- NOTE | 2016-09-13 23:00 | NUR ---
SHIFT REASSMENT COMPLETED NO SIGNIFICANT CHANGE. VSS.
[2016-09-14] VITALS (23 sets, daily range): BP systolic 102–174; BP diastolic 49–84
--- NOTE | 2016-09-14 | NUR ---
PT REQUESTED BED RICKS. CONTINENT OF SMALL STOOL. COMPLETE CLHORHEXIDINE BATH DONE AND ALL LINENS CHANGED. PT TOLERATED WELL. ABLE TO TURN AND REPOSITION SELF
--- NOTE | 2016-09-14 01:00 | NUR ---
PT HAS BEEN SLEEPING WELL CONTINUES ON BIPAP
--- NOTE | 2016-09-14 03:00 | NUR ---
SHIFT REASSESSMENT COMPLETED NO CHANGE
--- NOTE | 2016-09-14 05:00 | NUR ---
PT RESTING RESP REG AND NONLABORED. HAD BEEN NPO SINCE MIDNIGHT IN PREPARATION FOR CATH TODAY. CHLORHEXIDINE BATH WAS DONE
--- NOTE | 2016-09-14 07:15 | NUR ---
REPORT RECIEVED FROM DENTAL TECH NURSE. PT RESTING IN BED QUIETLY. NO S/SX OF ACUTE DISTRESS NOTED AT THIS TIME. ASSSESSMENT COMPLETE PER FLOWSHEET. CALL LIGHT IN REACH. BED IN LOW POSITION. WILL CONTINUE TO ASSESS FOR CHANGES THROUGHOUT SHIFT.
--- NOTE | 2016-09-14 09:00 | NUR ---
FAMILY AT BEDSIDE. UPATE PROVIDED.
--- NOTE | 2016-09-14 10:42 | NUR ---
MEDICATIONS ADMINISTERED FOR POULTRY PINNER. POULTRY PINNER AT BEDSIDE TO STEPHANEORT PT.
--- NOTE | 2016-09-14 12:15 | NUR ---
RECIEVED PT FROM [facility]. FEM-STOP TO RIGHT GROIN. NO SIGNS OF BLEEDING NOTED. AREA SOFT AROUND SITE. WILL CONT TO ASSESS FOR CHANGES.
--- NOTE | 2016-09-14 12:21 | NUR ---
NUTRITION MONITORING & EVAL PT CURRENTLY NPO FOR RAVELER. WILL PROVIDE DIET WHEN RESUMED. RD FOLLOWING
--- NOTE | 2016-09-14 14:15 | NUR ---
FEM STOP REMOVED. NO BLEEDING NOTED FROM SITE. OPSITE DRESSING PLACED OVER RIGHT GROIN. WILL MONITOR SITE. NO SIGNS OF HEMATOMA OR BRUISING NOTED. WILL CONT TO ASSESS. INSTRUCTED PT TO KEEP LEG STRAIGHT.
--- NOTE | 2016-09-14 15:00 | NUR ---
FAMILY AT BEDSIDE. UPDATE PROVIDED.
[2016-09-14 16:00] LABS: ALBUMIN 3.2 g/dL (3.4-5.0); CALC OSMOLALITY 282 mosm/kg (275-300); CALCIUM 8.1 mg/dL (8.5-10.1); CARBON DIOXIDE 35.6 mmol/L (21.0-32.0); CHLORIDE - SERUM 101 mmol/L (98-107); GLUCOSE 116 mg/dL (74-106); POTASSIUM - SERUM 4.5 mmol/L (3.5-5.1); SODIUM 140 mmol/L (136-145); UREA NITROGEN 20 mg/dL (7-18); eGFR NON AFRICAN AMERICAN 79 mL/min (90-120)
--- NOTE | 2016-09-14 17:33 | NUR ---
CRITICAL AMONIA CALLED TO DR. MORALES. ORDERS RECIEVED.
--- NOTE | 2016-09-14 19:15 | NUR ---
REPORT RECEIVED AND CARE ASSUMED. PT CURRENTLY ON 4LN/C TOLERATING WELL. WILL PLACE ON BIPAP FOR SLEEPING. INITIAL SHIFT ASSESSMENT COMPLETED SEE FLOWSHEET. PT BEING MONITORED PER STANDARD ICU PROTOCOL WITH ALL ALARMS SET AND VERIFIED.
--- NOTE | 2016-09-14 21:00 | NUR ---
HS MEDS GIVEN WITHOUT DIFFICULTY. TEACHING DONE PRIOR TO ADMINISTRATION. NO VISITORS AT THIS TIME
--- NOTE | 2016-09-14 23:00 | NUR ---
SHIFT REASSESSMENT COMPLETED. PT REQUESTED A WARM BLANKET, PROVIDED. DENIES OTHER NEEDS. MEDS GIVEN WITHOUT DIFFICULTY. NOTE IVF AND LINES DATED AND LABELED AND ARE CURRENT. PT PLACED ON BIPAP AT 40%. RT NOTIFIED. PT LEFT WTIH HOB ELEVATED, CALL LIGHT IN REACH, ARMS ELEVATED ON PILLOWS, HEELS FLOATED. PILLOWS USED FOR SUPPORT AND TO RELIEVE PRESSURE
[2016-09-15] VITALS (21 sets, daily range): BP systolic 114–175; BP diastolic 56–94
--- NOTE | 2016-09-15 | NUR ---
PT REQUESTED BED RICKS FOR BOWEL MOVEMENT. A BIT OF INCONTINENCE PRIOR TO PLACEMENT OF BEDPAN. PT TOILETED AND CATH AND PERICARE DONE. COMPLETE BED BATH DONE WITH ALL LINENS CHANGED. PT ABLE TO TURN SELF AND READJUST SELF WITH PROMPTINGS.
--- NOTE | 2016-09-15 01:00 | NUR ---
PT SLEEPING WELL. RESP REG AND NONLABORED
--- NOTE | 2016-09-15 03:00 | NUR ---
SHIFT REASSESSMENT COMPLETED. PT USED BEDPAN PER REQUEST AND THEN SWITCHED TO 4LN/C RT NOTIFIED
--- NOTE | 2016-09-15 05:00 | NUR ---
PT TOLERATING THE 4L N/C WELL. CONTINUE TO MONITOR. REMAINS IN SR
[2016-09-15 05:53] LABS: BASOPHILS 0.1 % (0.0-2.0); EOSINOPHILS 2.1 % (0-7); IMMATURE GRANULOCYTES 0.3 % (0-5); LYMPHOCYTES 13.6 % (15-50); MCH 25.8 pg (26.0-34.0); MCHC 30.2 g/dL (31.0-37.0); MCV 85.5 fL (80.0-100.0); MEAN PLATELET VOLUME 10.7 fL (7.4-10.4); MONOCYTES 10.1 % (2-11); NEUTROPHILS 73.8 % (40-80); PLATELET COUNT 215 10x3/uL (130-400); RBC 5.03 10x6/uL (4.20-6.10); RDW 15.5 % (11.5-14.5)
[2016-09-15 06:08] LABS: CALC OSMOLALITY 277 mosm/kg (275-300); CALCIUM 8.2 mg/dL (8.5-10.1); CARBON DIOXIDE 36.8 mmol/L (21.0-32.0); CHLORIDE - SERUM 99 mmol/L (98-107); GLUCOSE 107 mg/dL (74-106); MAGNESIUM - SERUM 1.7 mg/dL (1.8-2.4); SODIUM 138 mmol/L (136-145); UREA NITROGEN 17 mg/dL (7-18); eGFR NON AFRICAN AMERICAN 79 mL/min (90-120)
[2016-09-15 06:10] LABS: WBC 7.5 10x3/uL (4.8-10.8)
[2016-09-15 06:17] LABS: POTASSIUM - SERUM 3.7 mmol/L (3.5-5.1)
--- NOTE | 2016-09-15 10:18 | NUR ---
Patient Name: ERNESTO CUNNINGHAM Encounter No: [id number] : 1945 Primary Insurance: MEDICARE A & B Anticipated DC Date: 09-16-2016 Planned Disposition: Home External Planned Provider: DR LATHAM DCP follow-up note: CM MET WITH PATIENT AGAIN TO DISCUSS DC NEEDS. PT AND HIS INQUIRE ABOUT HOME OXYGEN. CM SPOKE WITH DR MORALES WHO ORDERED OXYGEN TESTING FOR POSSIBLE HOME NEED. ONCE RT HAS OXYGEN TESTING RESULTS CM WILL ASSIST WITH ANY ORDERS IF PATIENT QUALIFIES. PT/FAMILY STATED THEY WOULD LIKE TO USE [facility] DME PROVIDER IF DME IS NEEDED AT DC. FAMILY INQUIRED ABOUT OP SLEEP STUDY. CM WILL ATTEMPT TO ASSIST IN GETTING INFORMATION REGARDING OP SLEEP STUDY THAT DR MORALES DISCUSSED WITH THEM. CM DISCUSSED HH SERVICES AGAIN WITH PATIENT. HE STATED THAT HE THINKS HE ONLY WANTS HH SERVICES IF HE DOES NOT QUALIFY FOR HOME OXYGEN. CM WILL CONTINUE TO FOLLOW AND ASSIST WITH ANY DC NEEDS THEY ARISE. Casi Nagy RN, CM
--- NOTE | 2016-09-15 10:28 | NUR ---
TESTED PATIENT W/O OXYGEN, DESAT TO 86%. O2 RESUMED AT 3L NC. PATIENT DOES NOT APPEAR TO BE IN DISTRESS
--- NOTE | 2016-09-15 10:28 | NUR ---
RESTING ROOM AIR SPO2 86%. WILL NOTIFY DR MORALES.
--- NOTE | 2016-09-15 11:43 | NUR ---
TRIED TO PAGE DR. NUNO X3 OVER 10 MINUTE SPAN BUT RECEIVED A BUSY DIAL TONE EACH TIME. CALLED HIS OFFICE, LET HIS NURSE KNOW THAT PATIENT CONVERTED FROM NSR IN 80'S TO A-FLUTTER WITH A RATE OF 95
--- NOTE | 2016-09-15 12:53 | NUR ---
PAGED DR. NUNO AGAIN, WENT THROUGH. PATIENT REMAINS IN A-FLUTTER
--- NOTE | 2016-09-15 13:55 | NUR ---
PATIENT REMAINS IN FLUTTER, TRIED TO PAGE DR. NUNO AGAIN.
--- NOTE | 2016-09-15 14:01 | NUR ---
CALLED DR. LATHAM'S OFFICE, THEY SAID HE SHOULD BE AT HOSPITAL ROUNDING BUT HE DOES NOT HAVE A PAGER.
--- NOTE | 2016-09-15 14:02 | NUR ---
SPOKE WITH DR. LATHAM, LET HIM KNOW THAT PATIENT IS IN A-FLUTTER. SAID TO LET DR. NUNO KNOW. PAGED DR. NUNO AGAIN.
--- NOTE | 2016-09-15 14:07 | NUR ---
SPOKE WITH DR. NUNO, NEW ORDERS RECEIVED. SAID OK TO GO TO FLOOR ON TELEMETRY
--- NOTE | 2016-09-15 15:24 | NUR ---
PATIENT RETURNED FROM CT. HOOKED BACK UP TO ICU MONITORS.
--- NOTE | 2016-09-15 17:36 | NUR ---
TOOK PATIENT HIS DINNER TRAY. DENIES FURTHER NEEDS
--- NOTE | 2016-09-15 17:40 | NUR ---
FOR D/C: SLEEP STUDY IS SCHEDULED AT [facility] ON SEPTEMBER 26, 7:30 PM
--- NOTE | 2016-09-15 18:09 | NUR ---
DR. LATHAM AT BEDSIDE. NOTIFIED THAT PT C/O HEADACHE
--- NOTE | 2016-09-15 19:00 | NUR ---
REPORT RECEIVED, PATIENT CARE ASSUMED. ASSESSMENT COMPLETED PER FLOW SHEETS. PT ALERT AND ORINETED X4, DENIES SOB OR ANY DISCOMFORT AT THIS TIME. AFLATER ON CM WITH HR AT 117, LUNG SOUNDS CLEAR TO ULB WITH DIMINISHED TO LLB, UNLABORED ON 3L VIA NC. O2SAT 94%. RT AC PIV INTACT INFUSING IV FLUIDS PER ORDER. GARCÍA INTACT BY GRAVITY WITH CLEAR/ YELLOW DRAINAGE TO BAG. PPP. CALL LIGHT IN REACH. HOB UP. SIDE RAILS UP . BED IN LOW POSITION AND LOCKED. BST IN REACH. WILL CONT TO MONITOR.
--- NOTE | 2016-09-15 21:00 | NUR ---
SCHEDULED MEDS GIVEN PER ORDER WITHOUT DIFFICULTY. RT MCCURDY DRESSING CHANGED. PT PATRICIA WELL. REPOSITIONED SELF IN BED. CALL LIGHT IN REACH. CPOC.
--- NOTE | 2016-09-15 23:00 | NUR ---
REASSESSMENT COMPLETED PER FLOW SHEETS. PT RESTING QUIETLY ON BIPAP WITHOUT DISTRESS. CONT AFLUTTER ON CM WITH HR AT 98. NO NEEDS VOICES AT THIS TIME. CALL LIGHT AND BST IN REACH. WILL CONT TO MONITOR.
[2016-09-16] VITALS (21 sets, daily range): BP systolic 113–183; BP diastolic 66–103
--- NOTE | 2016-09-16 01:00 | NUR ---
PT RESTING QUIELTY WITHOUT DISTRESS. NO NEEDS VOICES AT THIS TIME. VSS. CPOC
--- NOTE | 2016-09-16 03:00 | NUR ---
REASSESSMENT COMPLETED PER FLOW SHEETS. NO ACUTE CHANGES NOTED ON PT'S CONDITION. VSS. D/CD RT AC PIV PER PATIENT. CATH TIP INTACT. RESITED #22G CATH TO LEFT WRIST. PT PATRICIA WELL. BEDBATH GIVEN . LINEN AND GOWN CHANGED, SKIN CARE PROVIDED. PILLOWS IN USE FOR SUPPORT. CALL LIGHT AND BST IN REACH. CPOC.
[2016-09-16 03:46] LABS: BASOPHILS 0.2 % (0.0-2.0); EOSINOPHILS 2.9 % (0-7); HEMATOCRIT 46.3 % (42.0-54.0); HEMOGLOBIN 14.6 g/dL (13.5-17.5); IMMATURE GRANULOCYTES 0.2 % (0-5); LYMPHOCYTES 11.3 % (15-50); MCH 26.1 pg (26.0-34.0); MCHC 31.5 g/dL (31.0-37.0); MEAN PLATELET VOLUME 10.5 fL (7.4-10.4); MONOCYTES 8.6 % (2-11); NEUTROPHILS 76.8 % (40-80); PLATELET COUNT 216 10x3/uL (130-400); RBC 5.59 10x6/uL (4.20-6.10); RDW 14.9 % (11.5-14.5)
[2016-09-16 03:47] LABS: MCV 82.8 fL (80.0-100.0); WBC 9.8 10x3/uL (4.8-10.8)
[2016-09-16 04:00] LABS: ANION GAP 9.6 mmol/L (8-16); CALCIUM 8.6 mg/dL (8.5-10.1); CARBON DIOXIDE 32.2 mmol/L (21.0-32.0); CREATININE - SERUM 1.1 mg/dL (0.6-1.3); MAGNESIUM - SERUM 1.8 mg/dL (1.8-2.4); POTASSIUM - SERUM 3.8 mmol/L (3.5-5.1)
--- NOTE | 2016-09-16 05:00 | NUR ---
PT RESTING QUIETLY WITHOUT DISTRESS. NO NEEDS VOICES. VSS
--- NOTE | 2016-09-16 08:08 | NUR ---
Pt awake, sitting up taking medications and now eating breakfast. Denies any other needs at this time. Call light in reach.
--- NOTE | 2016-09-16 08:55 | NUR ---
Pt assisted with bedpan needs. Was only able to make small bowel movement. Physical therapy staff now in room with patient.
--- NOTE | 2016-09-16 09:15 | NUR ---
Pt sitting up in chair at bedside. Has walked 50ft with physical therapy. Family in for visitation at this time.
--- NOTE | 2016-09-16 09:50 | NUR ---
Pt assisted from chair to bedside commode. Has had large bowel movement. Required 2 person assist from commode to chair. Pt back in chair, call light in reach.
--- NOTE | 2016-09-16 10:44 | NUR ---
Nutrition Follow Up: Spoke with nursing who reported that pt's diet may be changed to AHA. Pt is eating 100% x past three meals. I<O. Wt loss 22# since admit. ? +BM 09/15/16. Meds noted including Lactulose, Lasix, Zofran. Labs noted. Will change diet to AHA. Will send selective menus and honor food preferences. RD following.
--- NOTE | 2016-09-16 12:03 | NUR ---
Pt sitting up in chair at bedside. Lunch tray provided. Had been assisted again to bedside commode for bowel movement. Pt required less assistance this time. Was able to get onto and off of commode with no help, only required guidance and stability support once standing. Family in for visitation at this time.
--- NOTE | 2016-09-16 12:41 | NUR ---
Physical therapy Manish in room to assist patient back to bed. Pt requests to stay up in chair longer.
--- NOTE | 2016-09-16 15:00 | NUR ---
FAMILY AT BEDSIDE FOR VISITATION. REQUESTS NOTIFICATION WHEN PT IS MOVED TO A REGULAR ROOM. WANTS TO SPEAK WITH DR LATHAM
--- NOTE | 2016-09-16 17:31 | NUR ---
PT ASSISTED UP FROM CHAIR TO BEDSIDE COMMODE. NO BM PRODUCED, JUST GAS. ONCE FINISHED, PT WAS ASSISTED BACK TO BED. MONITORING EQUIPMENT IN PLACE.
--- NOTE | 2016-09-16 18:13 | NUR ---
FAMILY AT BEDSIDE, AWAITING DR LATHAM VISIT. WOULD LIKE TO SPEAK TO HIM.
--- NOTE | 2016-09-16 20:00 | NUR ---
REPORT RECEIVED AND CARE ASSUMED. LYING IN BED WATCHING TV. NO DISTRESS NOTED. ASSESSMENT COMPLETED PER FLOW SHEET. ALERT AND ORIENTED X 4. DENIES SOB OR PAIN AT THIS TIME. RESPIRATIONS UNLABORED ON 3 L VIA NC. O2 SAT AT 94% LEFT HAND PERIPERAL IV INTACT AND SALINE LOCKED. GARCÍA CATHETER WITH JHONATAN URINE PATENT TO GRAVITY. HOB UP. CALL LIGHT IN EASY REACH. WILL CONTINUE TO MONITOR.
--- NOTE | 2016-09-16 23:00 | NUR ---
REPORT CALLED TO PCU NURSE, ELAINE ESCALERA RN.
--- NOTE | 2016-09-16 23:27 | NUR ---
LEFT CVICU VIA WHEELCHAIR PER YESSI RECINOS,PRODUCT MANAGER.
--- NOTE | 2016-09-16 23:58 | NUR ---
PT ARRIVED VIA W/C FROM CVICU AT 2335 HRS. PT IN NO DISTRESS. VSS. A-FLUTTER PER CM HR 126. GARCÍA DRAINING YELLOW URINE. O2 3.5LNC. IV TO L WRIST SL. DRESSING TO LOWER R LEG CLEAN, DRY AND INTACT, WILL CONTINUE TO MONITOR. SR UP X2, CALL LIGHT WITHIN REACH.
--- NOTE | 2016-09-17 01:56 | NUR ---
PT RESTING WITH EYES CLOSED. RESP EVEN AND REGULAR. SR UP X2, CALL LIGHT WITHIN REACH.
[2016-09-17 02:03] VITALS: BP 132/84
--- NOTE | 2016-09-17 04:10 | NUR ---
PT RESTING WITH EYES CLOSED. RESP EVEN AND REGULAR. SR UP X2, CALL LIGHT WITHIN REACH.
[2016-09-17 04:29] VITALS: BP 194/111
--- NOTE | 2016-09-17 06:46 | NUR ---
VSS THROUGHOUT NIGHT. A-FLUTTER PER CM. PT DENIED ANY DISCOMFORT. NEEDS MET; WILL CONTINUE TO MONITOR.
--- NOTE | 2016-09-17 07:30 | NUR ---
ASSISTED PT BACK TO BED FROM BSC PT TOLERATED WELL WITH MINIMAL ASSIST
[2016-09-17 07:34] LABS: BASOPHILS 0.4 % (0.0-2.0); EOSINOPHILS 3.3 % (0-7); HEMATOCRIT 50.5 % (42.0-54.0); HEMOGLOBIN 16.2 g/dL (13.5-17.5); IMMATURE GRANULOCYTES 0.5 % (0-5); LYMPHOCYTES 12.4 % (15-50); MCH 26.4 pg (26.0-34.0); MCHC 32.1 g/dL (31.0-37.0); MCV 82.4 fL (80.0-100.0); MEAN PLATELET VOLUME 10.9 fL (7.4-10.4); MONOCYTES 11.5 % (2-11); NEUTROPHILS 71.9 % (40-80); RBC 6.13 10x6/uL (4.20-6.10); RDW 15.1 % (11.5-14.5); WBC 10.1 10x3/uL (4.8-10.8)
--- NOTE | 2016-09-17 07:34 | NUR ---
ASSESSMENT COMPLETED UP IN BEDSIDE CHAIR. DENIES ANY NEEDS. TELEMERTY SHOWS FLUTTER AT 111. PT HAS A GARCÍA CATH TO GRAVITY BAG. DRSG NOTED TO RIGHT LOWER LEG.WILL MONITOR
[2016-09-17 07:46] LABS: PLATELET COUNT 270 10x3/uL (130-400)
[2016-09-17 07:47] LABS: ANION GAP 13.2 mmol/L (8-16); CALCIUM 9.5 mg/dL (8.5-10.1); CARBON DIOXIDE 30.6 mmol/L (21.0-32.0); CREATININE - SERUM 1.2 mg/dL (0.6-1.3); MAGNESIUM - SERUM 1.9 mg/dL (1.8-2.4); POTASSIUM - SERUM 3.8 mmol/L (3.5-5.1)
[2016-09-17 09:04] VITALS: BP 151/93
--- NOTE | 2016-09-17 12:19 | NUR ---
up on side of bed for diet. denies any needs. will monitor
[2016-09-17 12:23] VITALS: BP 118/66
[2016-09-17 16:19] VITALS: BP 134/93
--- NOTE | 2016-09-17 16:45 | NUR ---
LYING QUIETLY WITH HOB UP. DR MORALES HERE. PT DENIES ANY NEEDS. CALL LIGHT IN REACH WITH SR UP
[2016-09-17 20:59] VITALS: BP 163/92
--- NOTE | 2016-09-17 22:58 | NUR ---
initial rounds completed at 1920 hrs. pt up in chair. asssited back to bed. PT HELPED BACK INTO THE CHAIR AT 5 HRS. ASSESSMENT COMPLTED AT THAT TIME. VSS. A-FLUTTER PER CM HR 120. O2 3.5LNC. LUNGS DIMINISHED IN BASES BILAT. 2+ PEDAL EDEMA NOTED. GARCÍA DRAINING YELLOW URINE. DRESSING TO LOWER R LEG CLEAN, DRY AND INTACT. IV TO L WRIST SL. PM MEDS GIVNE PER ORDERS. PT CURRENTLY RESTING WITH EYES CLOSED. IN RECLINER. RESP EVEN AND REGULAR. CALL LIGHT WITHIN REACH AND FEET ELEVATED. R GROIN INCISION SLIGHTLY RED. STERILE DRESSING APPLIED. WILL CONTINUE TO MONITOR.
[2016-09-18 00:12] VITALS: BP 160/90
--- NOTE | 2016-09-18 00:53 | NUR ---
PT ASSISTED TO BSC. HAD A LARGE,LOOSE BM. ASSISTED BACK TO BED WITH STAFF X2. WILL CONTINUE TO MONITOR. SR UP X2, CALL LIGHT WITHIN REACH.
--- NOTE | 2016-09-18 02:24 | NUR ---
PT RESTING WITH EYES CLOSED. RESP EVEN AND REGULAR. SR UP X2 CALL LIGHT WITHIN REACH.
[2016-09-18 04:00] VITALS: BP 163/92
--- NOTE | 2016-09-18 04:52 | NUR ---
PT ASSSITED TO BSC. VOISED LARGE AMOUNT OF LOOSE STOOL. BED LINENS CHANGED WHILE PT ON BSC. ASSSITED BACK TO BED. PT DENIES ANY DISCOMFORT. WILL CONTINUE TO MONITOR.
[2016-09-18 05:51] LABS: BASOPHILS 0.4 % (0.0-2.0); EOSINOPHILS 4.1 % (0-7); HEMATOCRIT 49.2 % (42.0-54.0); HEMOGLOBIN 15.5 g/dL (13.5-17.5); IMMATURE GRANULOCYTES 0.5 % (0-5); LYMPHOCYTES 15.4 % (15-50); MCH 25.7 pg (26.0-34.0); MCHC 31.5 g/dL (31.0-37.0); MCV 81.6 fL (80.0-100.0); MEAN PLATELET VOLUME 10.8 fL (7.4-10.4); MONOCYTES 9.6 % (2-11); PLATELET COUNT 291 10x3/uL (130-400); RBC 6.03 10x6/uL (4.20-6.10); RDW 14.9 % (11.5-14.5); WBC 11.1 10x3/uL (4.8-10.8)
[2016-09-18 06:13] LABS: ANION GAP 11.2 mmol/L (8-16); CALCIUM 9.2 mg/dL (8.5-10.1); CARBON DIOXIDE 31.2 mmol/L (21.0-32.0); CREATININE - SERUM 1.3 mg/dL (0.6-1.3); MAGNESIUM - SERUM 1.9 mg/dL (1.8-2.4); POTASSIUM - SERUM 3.4 mmol/L (3.5-5.1)
--- NOTE | 2016-09-18 06:42 | NUR ---
VSS THROUGHOUT NIGHT. A-FLUTTER PER CM. PT DENIED ANY DISCOMFORT. NEEDS MET; WILL CONTINUE TO MONITOR.
--- NOTE | 2016-09-18 07:53 | NUR ---
ASSESSMENT COMPLETED. UP IN BESIDE CHAIR.TELEMERTY SHOWS FLUTTER AT 92. LEFT WRIST SL. DRSG TO RIGHT LEG CLEAN AND DRY. O2 AT 3.5 L/M PER NC. WILL MONITOR
[2016-09-18 08:40] VITALS: BP 159/99
--- NOTE | 2016-09-18 10:47 | NUR ---
UP IN BEDSIDE CHAIR. NO NEEDS VOICED. CALL LIGHT IN REACH. WILL MONITOR
--- NOTE | 2016-09-18 12:35 | NUR ---
SITTING IN CHAIR EATING LUNCH VISITING WITH FRIENDS NAD NOTED
[2016-09-18 13:46] VITALS: BP 130/80
[2016-09-18 15:58] VITALS: BP 169/90
--- NOTE | 2016-09-18 17:23 | NUR ---
UP IN BEDSIDE CHAIR. IV INFUSING WELL.TELEMERTY SHOWS FLUTTER.WILL MONITOR
--- NOTE | 2016-09-18 19:42 | NUR ---
RESUMED CARE OF PT, UP IN CHAIR RESPIRAITONS EVEN AND UNLABORED ON 3.5LPM VIA IL. 116 FLUTTER ON TELEMETRY. GARCÍA TO GRAVITY. CALL LIGHT IN REACH. WILL CONTINUE TO MONITOR. SEE NURSE ASSESSMENT.
[2016-09-18 20:00] VITALS: BP 134/50
[2016-09-19] VITALS: BP 128/80
[2016-09-19 04:00] VITALS: BP 114/79
[2016-09-19 05:44] LABS: BASOPHILS 0.4 % (0.0-2.0); EOSINOPHILS 4.1 % (0-7); HEMATOCRIT 49.6 % (42.0-54.0); HEMOGLOBIN 15.7 g/dL (13.5-17.5); IMMATURE GRANULOCYTES 0.3 % (0-5); LYMPHOCYTES 15.5 % (15-50); MCH 25.8 pg (26.0-34.0); MCHC 31.7 g/dL (31.0-37.0); MCV 81.4 fL (80.0-100.0); MONOCYTES 9.3 % (2-11); NEUTROPHILS 70.4 % (40-80); PLATELET COUNT 277 10x3/uL (130-400); RBC 6.09 10x6/uL (4.20-6.10); RDW 14.8 % (11.5-14.5); WBC 10.7 10x3/uL (4.8-10.8)
[2016-09-19 06:01] LABS: ANION GAP 9.7 mmol/L (8-16); CALCIUM 9.2 mg/dL (8.5-10.1); CARBON DIOXIDE 31.7 mmol/L (21.0-32.0); CREATININE - SERUM 1.4 mg/dL (0.6-1.3); MAGNESIUM - SERUM 1.8 mg/dL (1.8-2.4); POTASSIUM - SERUM 3.4 mmol/L (3.5-5.1)
[2016-09-19 08:15] VITALS: BP 140/85
--- NOTE | 2016-09-19 09:42 | NUR ---
TELEMETRY Aziza MILLER. HR 95. RESP UL ON 02 3L NC. AMBULATES HALLWAY WITH PT ASSIST. WILL CONT. PLAN OF CARE.
[2016-09-19 11:37] VITALS: BP 158/71
--- NOTE | 2016-09-19 13:03 | NUR ---
UP AMBULATING HALLWAY WITH PT ASSIST.
[2016-09-19 15:32] VITALS: BP 142/71
--- NOTE | 2016-09-19 19:15 | NUR ---
INITIAL ROUNDS MADE. PT SITTING UP ON SIDE OF BED. NO NEEDS OR C/O AT THIS TIME. WILL CONT TO MONITOR. CALL LIGHT IN REACH.
[2016-09-19 20:00] VITALS: BP 122/73
[2016-09-20 00:11] VITALS: BP 148/80
--- NOTE | 2016-09-20 00:54 | NUR ---
BRASS PLATER AT BEDSIDE, NEEDS ADDRESSED AT THIS TIME. CALL LIGHT IN REACH. WILL CONT TO MONITOR.
[2016-09-20 04:00] VITALS: BP 130/84
[2016-09-20 05:55] LABS: BASOPHILS 0.3 % (0.0-2.0); EOSINOPHILS 3.9 % (0-7); HEMATOCRIT 46.3 % (42.0-54.0); IMMATURE GRANULOCYTES 0.3 % (0-5); LYMPHOCYTES 13.4 % (15-50); MCH 26.1 pg (26.0-34.0); MCHC 32.4 g/dL (31.0-37.0); MCV 80.7 fL (80.0-100.0); MEAN PLATELET VOLUME 11.2 fL (7.4-10.4); MONOCYTES 12.4 % (2-11); NEUTROPHILS 69.7 % (40-80); PLATELET COUNT 313 10x3/uL (130-400); RBC 5.74 10x6/uL (4.20-6.10); RDW 14.6 % (11.5-14.5); WBC 10.6 10x3/uL (4.8-10.8)
[2016-09-20 06:17] LABS: ANION GAP 9.8 mmol/L (8-16); CALCIUM 9.1 mg/dL (8.5-10.1); CARBON DIOXIDE 31.5 mmol/L (21.0-32.0); CREATININE - SERUM 1.3 mg/dL (0.6-1.3); MAGNESIUM - SERUM 1.8 mg/dL (1.8-2.4); PHOSPHOROUS 4.6 mg/dL (2.5-4.9); POTASSIUM - SERUM 3.3 mmol/L (3.5-5.1)
[2016-09-20 07:59] VITALS: BP 124/69
--- NOTE | 2016-09-20 08:44 | NUR ---
D/C PTS GARCÍA PER TELEPHONE ORDER OF . PT HAS NO FURTHER NEED FOR GARCÍA AND SHOULD BE D/C LATER TODAY. URINAL PROVIDED. PROVIDED PT WITH HIS MORNING MEDICATIONS. PT IS ALERT AND RESTING COMFORTABLY IN BEDSIDE CHAIR WITH SON VISITING. RR NONLABORED WITH NC @3L IN PLACE. PTS BILAT LEGS ARE SWOLLEN AND REDDENED APPLIED OINTMENT TO R.LE SCABBED/ULCER SPOT, THEN COVERED WITH GUAZE. PT DENIES ANY CURRENT PAIN OR FURTHER NEEDS. CL IN REACH, BED IN LOWEST, SIDE RAILS X2. WILL CPOC.
--- NOTE | 2016-09-20 09:49 | NUR ---
PT SITTING IN CHAIR AT BEDSIDE ON ROOM AIR. RESTING ROOM AIR SPO2 86%.
[2016-09-20 11:42] VITALS: BP 124/70
[2016-09-20 14:48] VITALS: BP 111/66
--- NOTE | 2016-09-20 19:30 | NUR ---
PTS L.FA PIV INFLITRATED. D/C WITH CATHETER TIP FULLY INTACT. PT SUPPOSED TO BE D/C TOMORROW AND REQUESTED TO NOT HAVE A NEW IV PLACED. PAGED FIBER TECHNOLOGIST FOR AND CALL RETURNED BY . ORDERS REC'D TO CHANGE IV MEDS TO ORAL FORM AND HOLD FROM STARTING NEW IV. PT VOICED THANKS AND DENIES ANY FURTHER NEEDS. CL IN REACH. WILL CPOC.
[2016-09-20 22:26] VITALS: BP 135/75
[2016-09-21 01:25] VITALS: BP 146/80
[2016-09-21 05:45] VITALS: BP 32/68
[2016-09-21 07:57] VITALS: BP 153/94
[2016-09-21] MEDS ORDERED: VIBRAMYCIN 100100 MG PO (08:12)
[2016-09-21] MEDS ORDERED: BROVANA15 MCG/2 M INH (08:12)
[2016-09-21] MEDS ORDERED: LOPRESSOR25 MG PO (08:14)
[2016-09-21] MEDS ORDERED: ASPIRIN81 MG PO (08:14)
[2016-09-21] MEDS ORDERED: LASIX40 MG PO (08:15)
[2016-09-21] MEDS ORDERED: PULMICORT0.5 MG/21 UPD (08:16)
[2016-09-21] MEDS ORDERED: MUCINEX DM ER1 EAC1 PO (08:17)
[2016-09-21] MEDS ORDERED: DIAMOX250 MG PO (08:17)
[2016-09-21] MEDS ORDERED: ALIGN4 MG PO (08:18)
[2016-09-21] MEDS ORDERED: Bactroban ointment TOPICAL (08:18)
[2016-09-21 11:27] VITALS: BP 147/71
--- NOTE | 2016-09-21 14:22 | NUR ---
DISCHARGE TEACHING PROVIDED. PAPERS SIGNED AND COPIES GIVEN. RETURNED TELEMETRY TO [employer]. PT LEAVING WITH HIS SON ON HIS PORTABLE OXYGEN @3L. PTS BELONGINGS COLLECTED. DENIES ANY QUESTIONS OR CONCERNS. NO FURTHER NEEDS.
--- NOTE | 2016-09-21 15:27 | NUR ---
Patient Name: ERNESTO CUNNINGHAM Encounter No: [id number] : 1945 Primary Insurance: MEDICARE A & B Anticipated DC Date: 09-21-2016 Planned Disposition: Home with Home Health External Planned Provider: [facility] DCP follow-up note: CM ARRANGED ALL NEEDED DME AND HH SERVICES FOR PATIENT FOR DC. ORDERS FOR BARIATRIC ROLLATOR AND HOME AND PORTABLE OXYGEN WAS ARRANGED WITH [facility] PER PT'S REQUEST. [facility] DELIVERED HOME OXYGEN TODAY WHILE WAS THERE AND PORTABLE IS NOW IN PT'S ROOM. HOME HEALTH SERVICES WERE ARRANGED WITH [facility] PER PT'S REQUEST. CM SPOKE TO DAYANA AT [facility] AND FAXED HH ORDERS. [facility] WILL CALL PATIENT TO ARRANGE FIRST HH VISIT. PT'S SON WILL DRIVE HIM HOME TODAY. OP SLEEP STUDY WAS SCHEDULED FOR September AT 7:30 PM. SLEEP LAB WILL CALL PATIENT WITH INSTRUCTIONS. PT VOICED NO OTHER DC NEEDS. DC IMM SIGNED ON 09/20/16 AND PLACED IN CHART. Casi Nagy RN, CM
--- NOTE | 2016-10-21 16:20 | CN ---
PATIENT NAME:ERNESTO MAXWELL MEDICAL RECORD: [id number] : [birth year] LOCATION:. D.2121 ADMIT DATE: 09/11/16 ACCOUNT: [id number] CONSULTING PHYSICIAN: GAURI MORALES MD REFERRING PHYSICIAN: JUANPABLO LATHAM MD DATE OF CONSULTATION: 09/14/2016 CONSULT REQUESTING PHYSICIAN: Dr. Latham. REASON FOR CONSULTATION: Acute hypoxic hypercapnic respiratory failure. HISTORY OF PRESENT ILLNESS: Mr. Maxwell is a 71-year-old gentleman who was brought in yesterday with acute respiratory distress. ABG showed a pH of 7.19 and pCO2 was 91. He was also having pulmonary edema, atrial fibrillation and flutter. The patient was cardioverted into sinus rhythm. He was put on BiPAP last night and now he is more awake and alert. The patient underwent cardiac catheterization, which was unsuccessful due to some coronary and aortic lesion. REVIEW OF SYSTEMS: Mainly in the history of present illness. PAST MEDICAL HISTORY: 1. Spinal stenosis. 2. Peripheral neuropathy. 3. Hypertension. 4. Coronary artery disease status post OR and stent placement in the past. PAST SURGICAL HISTORY: 1. He had a cardiac catheterization and stent placement in the past. 2. Cholecystectomy. 3. Hiatal herniorrhaphy. 4. Bilateral hip replacement. ALLERGIES: HE IS ALLERGIC TO SULFA. PRESENT MEDICATIONS: He is on Lasix 20 mg a day. His all other medication is reviewed. PERSONAL AND SOCIAL HISTORY: The patient has remote history of smoking. He is a nondrinker. FAMILY HISTORY: Significant for cardiovascular disease. PHYSICAL EXAMINATION: GENERAL: Now, the patient is lying comfortably in bed. He is not in acute distress. VITAL SIGNS: The blood pressure is 146/77, pulse is 64, respiration is 18, temperature is 97.9, SpO2 is 97% on 40% oxygen on BiPAP. HEENT: Conjunctivae pink, sclerae nonicteric. NECK: Neck is supple. There is no JVD. CHEST: Bilateral crackles. No wheezing. HEART: Rhythm regular, normal sound, no murmur. ABDOMEN: Abdomen is soft. Bowel sounds present. No hepatosplenomegaly. RECTAL: Deferred. EXTREMITIES: No cyanosis, no clubbing. There are 2+ pedal edema. There is a dependent sore on the right lower extremity. CONSULT REPORT [id number] ERNESTO MAXWELL CENTRAL NERVOUS SYSTEM: The patient is awake and alert. There are no obvious cranial nerve abnormality. The gait was not tested. IMPRESSION: 1. Acute hypoxic hypercapnic respiratory failure secondary to pulmonary edema. 2. Morbid obesity, obesity hypoventilation syndrome. 3. Respiratory acidosis secondary to #1. 4. Suspect obstructive sleep apnea. The patient is snoring very loudly and he is sleeping most of the time during the daytime in sitting position. 5. Obesity hypoventilation syndrome. 6. Coronary artery disease. 7. Atrial fibrillation and flutter. RECOMMENDATION: 1. Continue BiPAP. 2. Supplemental oxygen. 3. Increase Lasix to 40 mg b.i.d. Start him on Diamox 250 mg q.8 hourly. 4. Doxycycline 100 mg b.i.d. 5. Mucinex DM 2 tablets b.i.d. 6. We will do the sleep study as outpatient. Dr. Latham, once again thanks for involving me in the care of Mr. Maxwell. TRANSINT:[id number] Voice Confirmation ID: [id number] DOCUMENT ID: [id number] GAURI MORALES MD at 1620 CC: JUANPABLO LATHAM MD [id number] DICTATION DATE: 09/14/161627 COUNSELING SERVICES DIRECTOR: 09/15/16 0048 DIS IN 09/21/16 [facility] [address] [place] [address]
== END 2016-09-21 15:36 | disposition home health service (06) | DRG 280 ==
LOC: D.ER 20:34 → D.M2 23:00 → D.CVICU 23:00 → D.SDCHOLD 09-13 13:39 → D.M2 09-16 23:27
PROVIDERS: Internal Medicine Interventional Cardiology; Internal Medicine Pulmonary Disease; Surgery; ADMIT Family Medicine
PROC: 5A09557 Assistance with Respiratory Ventilation, Greater than 96 Consecutive Hours, Continuous Positive Airway Pressure (ICD-10-PCS; 2016-09-12)
PROC: B31G1ZZ Fluoroscopy of Bilateral Vertebral Arteries using Low Osmolar Contrast (ICD-10-PCS; 2016-09-12)
PROC: 4A023N7 Measurement of Cardiac Sampling and Pressure, Left Heart, Percutaneous Approach (ICD-10-PCS; 2016-09-13)
PROC: B2111ZZ Fluoroscopy of Multiple Coronary Arteries using Low Osmolar Contrast (ICD-10-PCS; principal; 2016-09-13 11:30)
PROC: B2151ZZ Fluoroscopy of Left Heart using Low Osmolar Contrast (ICD-10-PCS; 2016-09-13 11:30)
PROC: B3141ZZ Fluoroscopy of Left Common Carotid Artery using Low Osmolar Contrast (ICD-10-PCS; 2016-09-14)
PROC: B3121ZZ Fluoroscopy of Left Subclavian Artery using Low Osmolar Contrast (ICD-10-PCS; 2016-09-14)
DX: I21.4 Non-ST elevation (NSTEMI) myocardial infarction (principal); J96.02 Acute respiratory failure with hypercapnia; J96.01 Acute respiratory failure with hypoxia; Z68.42 Body mass index [BMI] 45.0-49.9, adult; E66.2 Morbid (severe) obesity with alveolar hypoventilation; I48.92 Unspecified atrial flutter; J98.11 Atelectasis; R41.82 Altered mental status, unspecified; I10 Essential (primary) hypertension; I48.91 Unspecified atrial fibrillation; I25.119 Atherosclerotic heart disease of native coronary artery with unspecified angina pectoris; I87.2 Venous insufficiency (chronic) (peripheral); E87.6 Hypokalemia; K21.9 Gastro-esophageal reflux disease without esophagitis; J32.9 Chronic sinusitis, unspecified; I25.2 Old myocardial infarction; Z87.891 Personal history of nicotine dependence

== ENCOUNTER → 2016-09-26 18:51 | Outpatient (CLI) | payer MEDICARE, BC ==
[2016-09-12 10:48] VITALS: BMI 47.3
[~2016-09-26 18:51] MED LIST changes: +ALIGN4 MG PO; +AMOXICILLIN500 M1 PO; +ASPIRIN81 MG PO; +BENZONATATE200 MG PO; +BETAPACE 80 MG80 MG PO; +BROVANA15 MCG/2 M INH; +Bactroban ointment TOPICAL; +CLEOCIN HCL300 MG PO; +DIAMOX250 MG PO; +FLUTICASONE PRO16 GM NASAL; +FUROSEMIDE20 MG PO; +IPRATROPIUM BR21 MCG NASAL; +LASIX40 MG PO; +LOPRESSOR25 MG PO; +METOPROLOL TART50 MG PO; +MUCINEX DM ER1 EAC1 PO; +OMEPRAZOLE20 M1 PO; +PULMICORT0.5 MG/21 UPD; +VIBRAMYCIN 100100 MG PO; +XARELTO10 MG PO
== END | disposition home or self-care (01) ==
LOC: D.SLEEP 18:51
DX: G47.33 Obstructive sleep apnea (adult) (pediatric) (principal)

== ENCOUNTER → 2017-01-23 08:39 | Outpatient (CLI) | payer MEDICARE, BC ==
[2016-09-12 10:48] VITALS: BMI 47.3
== END | disposition home or self-care (01) ==
LOC: D.RT 08:39
DX: J96.91 Respiratory failure, unspecified with hypoxia (principal)

== ENCOUNTER → 2018-05-15 12:36 | Outpatient (CLI) | payer MEDICARE, BC ==
[2016-09-12 10:48] VITALS: BMI 47.3
== END | disposition home or self-care (01) ==
LOC: D.RT 04-26 13:00 → D.RAD 04-26 14:00 → D.RT 12:36
DX: J45.909 Unspecified asthma, uncomplicated (principal)

== ENCOUNTER → 2019-05-21 13:23 | Outpatient (CLI) | payer MEDICARE, BC ==
[2016-09-12 10:48] VITALS: BMI 47.3
== END | disposition home or self-care (01) ==
LOC: D.RT 13:23
PROVIDERS: ATTEND Internal Medicine Pulmonary Disease
DX: J44.9 Chronic obstructive pulmonary disease, unspecified (principal); J98.11 Atelectasis

== ENCOUNTER → 2020-12-11 12:51 | Outpatient (CLI) | payer MEDICARE, BC ==
[2016-09-12 10:48] VITALS: BMI 47.3
== END | disposition home or self-care (01) ==
LOC: D.RT 12:51
PROVIDERS: ATTEND Internal Medicine Pulmonary Disease
DX: J44.9 Chronic obstructive pulmonary disease, unspecified (principal); Z11.52 Encounter for screening for COVID-19